=== PATIENT | female | born 1995 | race Caucasian/White ===

== ENCOUNTER 2020-08-07 14:39 | Emergency (ER) | payer OTHER ==
[~2020-08-07] VITALS: Ht 165.1 cm; Wt 79.4 kg
[2020-08-07] MEDS ORDERED: BUPRENORPHIN-N1 EACH SL (15:00)
[2020-08-07] MEDS ORDERED: FLUOXETINE HCL10 M1 PO (15:01)
[2020-08-07] MEDS ORDERED: LAMICTAL150 MG PO (15:01)
--- NOTE | 2020-08-07 22:05 | EKG ---
[facility] [address] [facility] [place], [place] [address] Signed Sinus bradycardia Otherwise normal ECG No previous ECGs available Confirmed by SHAKIRA EDWARDS MD ([id number]) on 08/07/2020 10:05:40 PM Electronically Signed By: SHAKIRA EDWARDS MD 08/07/205 PATIENT NAME: STERLINGADRYAN Maximiliano Electrocardiogram DATE OF : [birth year] PHYSICIAN: SHAKIRA EDWARDS MD REPORT #: [id number] REPORT IS CONFIDENTIAL AND NOT TO BE RELEASED WITHOUT AUTHORIZATION
== END 2020-08-07 16:15 | disposition home or self-care (01) ==
LOC: ED 14:39
DX: R07.89 Other chest pain (principal); M79.10 Myalgia, unspecified site; F17.200 Nicotine dependence, unspecified, uncomplicated; Z20.822 Contact with and (suspected) exposure to COVID-19; Z71.6 Tobacco abuse counseling; Z88.5 Allergy status to narcotic agent; Z79.899 Other long term (current) drug therapy
CPT/HCPCS: 93005; 93010; 99285-25; 99406; C9803; U0003

== ENCOUNTER 2020-10-11 08:14 | Emergency (ER) | payer OTHER ==
[~2020-10-11] VITALS: Ht 165.1 cm; Wt 83.5 kg
[~2020-10-11 08:14] MED LIST: BUPRENORPHIN-N1 EACH SL; FLUOXETINE HCL10 M1 PO; LAMICTAL150 MG PO
[2020-10-11] MEDS ORDERED: GABAPENTIN300 MG PO (10:03)
[2020-10-11] MEDS ORDERED: IBU600 MG PO (10:03)
[2020-10-11] MEDS ORDERED: CYCLOBENZAPRINE5 MG PO (10:03)
== END 2020-10-11 10:13 | disposition home or self-care (01) ==
LOC: ED 08:14
DX: M54.16 Radiculopathy, lumbar region (principal); F17.200 Nicotine dependence, unspecified, uncomplicated; Z88.5 Allergy status to narcotic agent; Z88.8 Allergy status to other drugs, medicaments and biological substances; Z79.899 Other long term (current) drug therapy
CPT/HCPCS: 73502; 81001; 84703; 96372; 99283-25; A9270; J1885

== ENCOUNTER 2021-05-16 09:46 | Emergency (ER) | payer OTHER ==
[~2021-05-16] VITALS: Ht 165.1 cm; Wt 90.6 kg
[~2021-05-16 09:46] MED LIST changes: +CYCLOBENZAPRINE5 MG PO; +GABAPENTIN300 MG PO; +IBU600 MG PO
[2021-05-16] MEDS ORDERED: BUPRENORPHINE HC2 MG SL (10:39)
[2021-05-16] MEDS ORDERED: FLUOXETINE HCL60 MG PO (10:40)
[2021-05-16] MEDS ORDERED: PROMETHAZINE HC25 M1 PO (14:27)
[2021-05-16] MEDS ORDERED: METRONIDAZOLE500 MG PO (14:27)
== END 2021-05-16 14:35 | disposition home or self-care (01) ==
LOC: ED 09:46
DX: O21.9 Vomiting of pregnancy, unspecified (principal); O23.591 Infection of other part of genital tract in pregnancy, first trimester; O98.311 Other infections with a predominantly sexual mode of transmission complicating pregnancy, first trimester; A59.9 Trichomoniasis, unspecified; Z3A.01 Less than 8 weeks gestation of pregnancy; Z88.5 Allergy status to narcotic agent; Z88.8 Allergy status to other drugs, medicaments and biological substances; Z79.899 Other long term (current) drug therapy
CPT/HCPCS: 76801; 76817; 80053; 81001; 84702; 85025; 86900; 87210; 96374; 99284-25; J2765; J7030

== ENCOUNTER 2022-01-03 02:13 | Inpatient (IN) | payer OTHER ==
[~2022-01-03 02:13] MED LIST changes: +BUPRENORPHINE HC2 MG SL; +FLUOXETINE HCL60 MG PO; +METRONIDAZOLE500 MG PO; +PROMETHAZINE HC25 M1 PO
--- NOTE | 2022-01-03 05:30 | PR ---
[facility] [address] [place], [place] [address] Signed Progress Notes IP Datetime Report Generated by CPN: 01/03/2022 05:30 PROGRESS NOTES: [id number] Impression: Normal Progression of Labor; Reassuring Heart Rate Procedures: Sterile Vag Exam Plan: Continue Present Management VITAL SIGNS: [id number] Vital Signs: Reviewed; Within Normal Limits EXAM: [id number] Dilatation: 6.0 Effacement: 90 Station: -2 Contractions: q 1-2 min MEMBRANES: [id number] Amniotic Fluid Color: Clear ROM Note: small amount Comments: Pt seen and examined. Doing well. Late and variable deceleration noted; noted relative hypotension following epidural. Anesthesia in to evaluate and to treat hypotension. Position changes implimented. Consider amnioinfusion if required. Cervix unchanged. Reviewed in detail w/ pt. All questions answered. FETUS A: [id number] FHR Baseline: 120 Variability: Moderate 6-25bpm Accelerations: 15X15 Decelerations: Early; Variable FHR Category: Category II Presentation: Vertex Comments on Fetus A: No evidence of metabolic acidosis FETUS B: [id number] Signing Physician: Anthony Mckeon DO Copies: ~ *Electronically Signed* 01/03/22 1328 ANTHONY MCKEON DO PATIENT NAME: ADRYAN KATZ PROGRESS NOTE DATE OF : [birth year] PHYSICIAN: ANTHONY MCKEON DO RPT #: [id number] REPORT IS CONFIDENTIAL AND NOT TO BE RELEASED WITHOUT AUTHORIZATION
--- NOTE | 2022-01-03 05:35 | NUR ---
0310 COVID 19 SWAB DONE TO BOTH NARES AND SENT TO IN HOUSE LAB.
--- NOTE | 2022-01-03 07:14 | PR ---
[facility] [address] [place], [place] [address] Signed Progress Notes IP Datetime Report Generated by CPN: 01/03/2022 07:13 PROGRESS NOTES: [id number] Impression: Normal Progression of Labor; Reassuring Heart Rate Procedures: Sterile Vag Exam Plan: Continue Present Management Other Plans: Consider amnioinfusion if recurrent variables Informed Consent Obtain: Vaginal Delivery VITAL SIGNS: [id number] Vital Signs: Reviewed; Within Normal Limits EXAM: [id number] Dilatation: 4.0 Effacement: 75 Station: -3 Contractions: q 1-2 min MEMBRANES: [id number] Amniotic Fluid Color: Clear ROM Note: small amount Comments: Pt seen and examined. Decel to 90's w/ slow return. Moderate variablity w/ accels noted. Cx 7.5/90. Continue current plan of care but will consider amnioinfusion if indicated. Reviewed w/ pt. All questions answered FETUS A: [id number] FHR Baseline: 120 Variability: Moderate 6-25bpm Accelerations: 15X15 Decelerations: Early; Variable FHR Category: Category II Presentation: Vertex Comments on Fetus A: No evidence of metabolic acidosis FETUS B: [id number] Signing Physician: Anthony Mckeon DO Copies: ~ *Electronically Signed* 01/03/22712 ANTHONY MCKEON DO PATIENT NAME: ADRYAN KATZ PROGRESS NOTE DATE OF : [birth year] PHYSICIAN: ANTHONY MCKEON DO RPT #: [id number] REPORT IS CONFIDENTIAL AND NOT TO BE RELEASED WITHOUT AUTHORIZATION
--- NOTE | 2022-01-03 07:56 | PR ---
[facility] [address] [place], [place] [address] Signed Progress Notes IP Datetime Report Generated by CPN: 01/03/2022 07:56 PROGRESS NOTES: [id number] Impression: Normal Progression of Labor; Reassuring Heart Rate Procedures: Sterile Vag Exam Plan: Continue Present Management; Anticipate Vaginal Delivery Other Plans: Consider amnioinfusion if recurrent variables Informed Consent Obtain: Vaginal Delivery VITAL SIGNS: [id number] Vital Signs: Reviewed; Within Normal Limits EXAM: [id number] Dilatation: 9.0 Effacement: 90 Station: -1 Contractions: q 1-2 min MEMBRANES: [id number] Amniotic Fluid Color: Clear ROM Note: small amount Comments: Pt seen and examined. 9cm and lower in pelvis. Bloody show. Variable deceleration but strip overall very reassuring. Will monitor closely. Anticipate FETUS A: [id number] FHR Baseline: 120 Variability: Moderate 6-25bpm Accelerations: 15X15 Decelerations: Early; Variable FHR Category: Category II Presentation: Vertex Comments on Fetus A: No evidence of metabolic acidosis FETUS B: [id number] Signing Physician: Anthony Mckeon DO Copies: ~ *Electronically Signed* 01/03/22 0756 ANTHONY MCKEON DO PATIENT NAME: ADRYAN KATZ PROGRESS NOTE DATE OF : [birth year] PHYSICIAN: ANTHONY MCKEON DO RPT #: [id number] REPORT IS CONFIDENTIAL AND NOT TO BE RELEASED WITHOUT AUTHORIZATION
--- NOTE | 2022-01-03 09:38 | PR ---
[facility] [address] [facility] [place], [place] [address] Signed Progress Notes IP Datetime Report Generated by CPN: 01/03/2022 09:37 PROGRESS NOTES: [id number] Impression: Normal Progression of Labor; Reassuring Heart Rate Procedures: Sterile Vag Exam Plan: Anticipate Vaginal Delivery Other Plans: Consider amnioinfusion if recurrent variables Informed Consent Obtain: Vaginal Delivery VITAL SIGNS: [id number] Vital Signs: Reviewed; Within Normal Limits EXAM: [id number] Dilatation: 9.5 Effacement: 100 Station: 0 Contractions: q 1-2 min MEMBRANES: [id number] Amniotic Fluid Color: Clear ROM Note: small amount Comments: Pt seen and examined. 0 station and easily reducible anterior lip. Prepare for . FETUS A: [id number] FHR Baseline: 120 Variability: Moderate 6-25bpm Accelerations: 15X15 Decelerations: Early; Variable FHR Category: Category II Presentation: Vertex Comments on Fetus A: No evidence of metabolic acidosis FETUS B: [id number] Signing Physician: Anthony Mckeon DO Copies: ~ *Electronically Signed* 01/03/22 0937 ANTHONY MCKEON DO PATIENT NAME: ADRYAN KATZ PROGRESS NOTE DATE OF : [birth year] PHYSICIAN: ANTHONY MCKEON DO RPT #: [id number] REPORT IS CONFIDENTIAL AND NOT TO BE RELEASED WITHOUT AUTHORIZATION
--- NOTE | 2022-01-04 12:36 | PR ---
[facility] [address] [facility] [place], [place] [address] Signed PP Progress Notes Datetime Report Generated by CPN: 01/04/2022 12:36 SUBJECTIVE: [id number] Pain: Within Normal Limits Nausea/Vomiting: Denies Flatus: Yes Vital Signs: [id number] Vital Signs: Reviewed; Within Normal Limits EXAM: Ongoing Cardiovascular: Normal Respiratory: Normal Abdomen/Uterus: Normal Lochia: Normal Vulva/Perineum: Not Done Breasts: Not Done CVA Tenderness: Not Done Extremities: Normal Incision: Not Applicable Progress: Normal Exam Comments: Fundus firm U-2 nontender IMPRESSION/PLAN/PROCEDURES: [id number] Impression: Normal Progression Plan: Continue Present Management Progress Notes: Pt seen and examined. Doing well. Ambulating, voiding, and tolerating full diet. Pain and lochia minimal. well. No concerns. Anticipate d/c home tomorrow. Signing Physician: Anthony Mckeon DO Copies: ~ *Electronically Signed* 01/04/22 1236 ANTHONY MCKEON DO PATIENT NAME: ADRYAN KATZ PROGRESS NOTE DATE OF : [birth year] PHYSICIAN: ANTHONY MCKEON DO RPT #: [id number] REPORT IS CONFIDENTIAL AND NOT TO BE RELEASED WITHOUT AUTHORIZATION
--- NOTE | 2022-01-05 10:53 | PR ---
[place] [facility] [address] [place], [place] [address] Signed PP Progress Notes Datetime Report Generated by CPN: 01/05/2022 10:53 SUBJECTIVE: [id number] Pain: Within Normal Limits Nausea/Vomiting: Denies Flatus: Yes Bowel Movement: Yes Vital Signs: [id number] Vital Signs: Reviewed; Within Normal Limits EXAM: Ongoing Cardiovascular: Normal Respiratory: Normal Abdomen/Uterus: Normal Lochia: Normal Vulva/Perineum: Not Done Breasts: Not Done CVA Tenderness: Normal Extremities: Normal Incision: Not Applicable Progress: Normal Exam Comments: Fundus firm U -2 nontender. IMPRESSION/PLAN/PROCEDURES: [id number] Impression: Normal Progression Plan: Discharge Progress Notes: Pt seen and examined. Doing well. Ambulating, voiding, and tolerating full diet. Pain and lochia minimal. well. No fevers/chills. No concerns. Desires d/c to border status today. Reviewed d/c instructions Signing Physician: Anthony Mckeon DO Copies: ~ *Electronically Signed* 01/05/22 1053 ANTHONY MCKEON DO PATIENT NAME: ADRYAN KATZ PROGRESS NOTE DATE OF : [birth year] PHYSICIAN: ANTHONY MCKEON DO RPT #: [id number] REPORT IS CONFIDENTIAL AND NOT TO BE RELEASED WITHOUT AUTHORIZATION
== END 2022-01-05 17:30 | disposition home or self-care (01) | DRG 768 ==
LOC: FBCO 02:13 → FBC 02:39
PROVIDERS: ADMIT Obstetrics & Gynecology; ATTEND Obstetrics & Gynecology
PROC: 10E0XZZ Delivery of Products of Conception, External Approach (ICD-10-PCS; principal; 2022-01-03)
PROC: 0UQJXZZ Repair Clitoris, External Approach (ICD-10-PCS; 2022-01-03)
PROC: 3E0R3BZ Introduction of Anesthetic Agent into Spinal Canal, Percutaneous Approach (ICD-10-PCS; 2022-01-03)
PROC: 00HU33Z Insertion of Infusion Device into Spinal Canal, Percutaneous Approach (ICD-10-PCS; 2022-01-03)
DX: O76 Abnormality in fetal heart rate and rhythm complicating labor and delivery (principal); Z37.0 Single live birth; F11.20 Opioid dependence, uncomplicated; O99.324 Drug use complicating childbirth; O43.123 Velamentous insertion of umbilical cord, third trimester; O71.82 Other specified trauma to perineum and vulva; Z3A.39 39 weeks gestation of pregnancy; O99.824 Streptococcus B carrier state complicating childbirth; Z88.5 Allergy status to narcotic agent; Z88.8 Allergy status to other drugs, medicaments and biological substances; O99.334 Smoking (tobacco) complicating childbirth; F17.210 Nicotine dependence, cigarettes, uncomplicated
CPT/HCPCS: 36415; 84112; 85027; 86850; 86900; 86901; 87502; A9270; C9803; J2001; J2405; J2540; J2590; J2795; J7121; U0003

== ENCOUNTER 2022-07-07 11:55 | Emergency (ER) | payer OTHER ==
[~2022-07-07] VITALS: Ht 152.4 cm; Wt 109.2 kg
--- OUTSIDE RECORDS SUMMARY | 2022-07-07 11:58 | XMS ---
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 EJayda VISIT COUNT (12 MO.) 1 BYRON Doshi TOTAL 1 NOTE: Visits indicate total known visits. ED/UCC VISIT TRACKING (12 MO.) 07/07/2022 11:56 [facility] [place] TYPE: Emergency COMPLAINT: - L PINKY FINGER LACERATION INPATIENT VISIT TRACKING (12 MO.) 01/03/2022 02:39 [facility] [place] TYPE: [facility] COMPLAINT: - LABOR DIAGNOSES: - Velamentous insertion of umbilical cord, third trimester - Smoking (tobacco) complicating childbirth - Single live - Smoking (tobacco) complicating childbirth - Allergy status to other drugs, medicaments and biological substances - 39 weeks gestation of - Maternal care for abnormalities of the heart rate or rhythm, third trimester, not applicable or unspecified - Velamentous insertion of umbilical cord, third trimester - Nicotine dependence, cigarettes, uncomplicated - 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 - Allergy status to narcotic agent - Allergy status to other drugs, medicaments and biological substances - Opioid dependence, uncomplicated - Allergy status to narcotic agent - Drug use complicating childbirth - 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
[2022-07-07] MEDS ORDERED: HYDROXYZINE HCL25 MG PO (12:10)
[2022-07-07] MEDS ORDERED: LAMOTRIGINE200 MG PO (12:11)
== END 2022-07-07 12:50 | disposition home or self-care (01) ==
LOC: ED 11:55
DX: S61.217A Laceration without foreign body of left little finger without damage to nail, initial encounter (principal); W26.8XXA Contact with other sharp object(s), not elsewhere classified, initial encounter
CPT/HCPCS: 99282

== ENCOUNTER 2023-05-08 10:29 | Emergency (ER) | payer OTHER ==
[~2023-05-08] VITALS: Ht 152.4 cm; Wt 108.9 kg
[~2023-05-08 10:29] MED LIST changes: +HYDROXYZINE HCL25 MG PO; +LAMOTRIGINE200 MG PO
--- OUTSIDE RECORDS SUMMARY | 2023-05-08 10:32 | XMS ---
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 E.DFadi VISIT COUNT (12 MO.) 2 BYRON Doshi TOTAL 2 NOTE: Visits indicate total known visits. ED/UCC VISIT TRACKING (12 MO.) 05/08/2023 10:[address] [facility] [place] TYPE: Emergency COMPLAINT: - HEADACHE, VOMITING, STIFF NECK, UNABLE TO EAT 07/07/2022 11:[address] [facility] [place] TYPE: Emergency COMPLAINT: - L PINKY FINGER LACERATION DIAGNOSES: - Contact with other sharp object(s), not elsewhere classified, initial encounter - Laceration without foreign body of left index finger without damage to nail, initial encounter - Laceration without foreign body of left little finger without damage to nail, initial encounter - Laceration without foreign body of left little finger without damage to nail, initial encounter INPATIENT VISIT TRACKING (12 MO.) No inpatient visits to display in this time frame [email or web address]
[2023-05-08 11:40] LABS: INFLUENZA B NAA NEGATIVE (NEGATIVE); RESPIRATORY SYNCYTIAL VIR NAA NEGATIVE (NEGATIVE)
[2023-05-08] MEDS ORDERED: PAXLOVID 300-11 EACH PO (12:37)
[2023-05-08 12:52] VITALS: BP 130/90
== END 2023-05-08 12:51 | disposition home or self-care (01) ==
LOC: ED 10:29
PROVIDERS: Emergency Medicine
DX: U07.1 COVID-19 (principal); Z88.5 Allergy status to narcotic agent; Z88.8 Allergy status to other drugs, medicaments and biological substances; Z79.899 Other long term (current) drug therapy
CPT/HCPCS: 87502; 99283; C9803; U0002